=== PATIENT | male | born 1960 | race Caucasian/White ===

== ENCOUNTER 2021-04-16 11:53 | Emergency (ER) | payer BC ==
[2021-04-16 11:58] VITALS: RESP 18; TEMP 97.8
[2021-04-16] MEDS ORDERED: LIDOCAINE 1% INJ 10MG/ML (20 ML MDV) SQ STA (12:23)
[2021-04-16] MEDS ORDERED: ceFAZolin 1,000 MG VIAL (IM USE) IM STA (12:23)
--- NOTE | 2021-04-16 12:27 | ED ---
General Adult HPI - General Chief complaint: Wound/Laceration Stated complaint: finger lac Time Seen by Provider: 04/16/21 12:16 Source: family, RN notes reviewed Mode of arrival: ambulatory Limitations: no limitations - History of Present Illness Initial comments: 60-year-old male presents to the emergency room for a chief complaint of finger laceration. Patient cut his left fifth digit with a saw. Patient is up-to-date on tetanus within 5 years. Refuses anything for pain at this time. Patient denies any difficulty moving the finger but states it is painful. Patient is right-handed.Patient has no other complaints at this time including shortness of breath, chest pain, abdominal pain, nausea or vomiting, headache, or visual changes. - Related Data Previous Rx's Medication Instructions Recorded Cephalexin [Keflex] 500 mg PO Q6HR 7 Days #28 cap 04/16/21 HYDROcodone/APAP 5-325MG [[place] 1 tab PO Q6HR PRN #12 tab 04/16/21 5-325] Allergies Allergy/AdvReac Type Severity Reaction Status Date / Time No Known Allergies Allergy Verified 04/16/21 11:58 Review of Systems ROS Statement: Those systems with pertinent positive or pertinent negative responses have been documented in the HPI. ROS Other: All systems not noted in ROS Statement are negative. Past Medical History Past Medical History: No Reported History Past Surgical History: Orthopedic Surgery Past Psychological History: No Psychological Hx Reported Smoking Status: Never smoker Past Alcohol Use History: Occasional Past Drug Use History: None Reported General Exam - General Exam Comments Initial Comments: LUE: Patient has laceration deformity noted to the dorsal aspect of the left fifth digit through the nail bed. Full range of motion. No lacerations elsewhere. Capillary refill less than 2 seconds, radial pulse 2+ left upper extremity. Limitations: no limitations General appearance: alert, in no apparent distress Head exam: Present: atraumatic Eye exam: Present: normal appearance, PERRL, EOMI. Absent: scleral icterus, conjunctival injection ENT exam: Present: normal exam, mucous membranes moist Neck exam: Present: normal inspection, full ROM. Absent: tenderness Respiratory exam: Present: normal lung sounds bilaterally. Absent: respiratory distress, wheezes Cardiovascular Exam: Present: regular rate, normal rhythm, normal heart sounds GI/Abdominal exam: Present: soft, normal bowel sounds. Absent: distended, tenderness Extremities exam: Present: other Course Vital Signs 12/12/21 11:54 Temperature 97.8 F Pulse Rate 89 Respiratory 18 Rate Blood Pressure 161/85 O2 Sat by Pulse 97 Oximetry Procedures - Laceration Laceration #1 Consent Obtained: verbal consent Indication: laceration Site: hand Size (cm): 2 Description: irregular Depth: simple, single layer Anesthetic Used: lidocaine 1% Anesthesia Technique: nerve block Amount (mls): 4 Pre-repair: wound explored, irrigated extensively Type of Sutures: nylon (5), vicryl (1) Size of Sutures: 4-0 Number of Sutures: 5 Technique: simple, interrupted Complications: bleeding Patient Tolerated Procedure: well Medical Decision Making - Medical Decision Making Patient has irregular laceration involving the distal phalanx of the left fifth digit. This has avulsed the nail. Wound was irrigated thoroughly. X-ray did confirm an acute fracture, no foreign body. There was pretty significant difficulty in controlling the capillary bleeding from the finger. Ultimately Gelfoam was used which did achieve hemostasis. I did attempt to Revised some of the margins and remove the small pieces of the nail that were remaining. She was given IM Ancef. He will be started on [place] for pain. I did speak with Dr. Muro and he states the hand surgeon can see him tomorrow. Patient will call to make an appointment. We will send him home on antibiotics. Disposition Clinical Impression: Open fracture, Laceration Disposition: HOME SELF-CARE Condition: Good Instructions (If sedation given, give patient instructions): Finger Laceration (ED) Additional Instructions: Please take medication as directed. Call orthopedics tomorrow morning. We spoke with Dr. Muro who stated they could see you in the office tomorrow. Return to the emergency room for any worsening symptoms. Prescriptions: Cephalexin [Keflex] 500 mg PO Q6HR 7 Days #28 cap HYDROcodone/APAP 5-325MG [[place] 5-325] 1 tab PO Q6HR PRN #12 tab PRN Reason: Pain Is patient prescribed a controlled substance at d/c from ED?: Yes When asked, does pt state using other controlled substances?: No If prescribed controlled substance>3 days was MAPS reviewed?: Prescribed <3 Days If opioid is for acute pain is fill amount 7 days or less?: Yes If Rx opioid, was Start Talking consent form obtained?: Yes Referrals: Nonstaff,Physician [Primary Care Provider] - 1-2 days Yasmany Muro MD [STAFF PHYSICIAN] - 1-2 days Time of Disposition: 14:42
--- NOTE | 2021-04-16 13:03 | XR ---
EXAMINATION TYPE: XR finger LT DATE OF EXAM: 04/16/2021 12:44 PM INDICATION: Patient age:Male; 60 years old; Reason for study: 5th digit; H. COMPARISON: None TECHNIQUE: 3 views of the left fifth digit were obtained. FINDINGS: Commuted fracture of the fifth digit distal phalanx. There is soft tissue swelling of the f ifth digit. A radiopaque foreign body. IMPRESSION: Acute mediated fracture of the digit distal phalanx without evidence for radiopaque foreign body. The re is associated soft tissue edema.
[2021-04-16] MEDS ORDERED: GELATIN SPONGE,ABSORB (SMALL) 1 EACH SPONGE TOPICAL STA (13:56)
[2021-04-16 14:49] VITALS: BP 148/70; PULSE 84
== END 2021-04-16 14:52 | disposition home or self-care (01) ==
LOC: EC 11:53
DX: S61.217A Laceration without foreign body of left little finger without damage to nail, initial encounter (principal); W27.0XXA Contact with workbench tool, initial encounter
CPT/HCPCS: 99283; 96372; 12001; 73140; J0690; J2001